=== PATIENT | female | born 1995 | race Two or more races ===

== ENCOUNTER 2017-06-24 00:27 | Emergency (ER) | payer SELFPAY ==
[~2017-06-24] VITALS: Ht 157.5 cm; Wt 85.3 kg
[2017-06-24 00:29] VITALS: BP 142/86
[2017-06-24] MEDS ORDERED: BICILLIN-LA 1,200,000 UNITS/2 ML IM ONE (01:00)
[2017-06-24] MEDS ORDERED: DEXAMETHASONE 4 MG/ML, 1ML PO ONE (01:00)
[2017-06-24] MEDS ORDERED: DEXAMETHASONE 4 MG TABLET ONE (01:00)
[2017-06-24] MEDS ORDERED: DEXAMETHASONE 4 MG TABLET PO ONE (01:30)
== END 2017-06-24 01:44 | disposition home or self-care (01) ==
LOC: ED 01:35
DX: J02.8 Acute pharyngitis due to other specified organisms (principal); B97.89 Other viral agents as the cause of diseases classified elsewhere
CPT/HCPCS: 96372; 99283; J0561; J1100